=== PATIENT | female | born 1960 | race Caucasian/White ===

== ENCOUNTER → 2017-01-04 | Outpatient (CLI) | payer MEDICAID ==
--- NOTE | 2017-01-05 14:37 | MR ---
EXAM DATE: 01/04/17 PATIENT'S AGE: 56 Patient: ROSITA BERNABE Facility: [place], [place] Site . Site : [id number] Study: MRI Knee Left [id number]/28/2017 7:40:03 PM Ordering Physician: Obey Adame Final Report: HISTORY: Left knee pain. Remote left knee surgery. Technique: MRI left knee without contrast. Comparison: None. Findings: Medial compartment: Medial meniscus: Complex tearing of the medial meniscus. Meniscus is diffusely attenuated. Articular cartilage: Grade 3-4 cartilage loss in the weightbearing portion of the medial femoral condyle and the medial tibial plateau with mild subchondral marrow edema. Lateral compartment: Lateral meniscus: Intact. Articular cartilage: Grade 2 cartilage loss in weightbearing portion the medial femoral condyle. No focal medial tibial plateau cartilage defects. Patellofemoral compartment: No focal cartilage defects. Ligaments: ACL: Complete tear, likely remote. PCL: Intact. MCL: Intact. Lateral ligamentous complex: Intact. Extensor mechanism: Distal quadriceps and patellar tendons are intact. Medial and lateral patellar strains are intact. Joint space: Small joint effusion. Mild synovitis. Several ossified joint bodies , predominantly in the posterior aspect of the joint. Cluster of joint bodies posterior to the PCL measures 1 x 0.9 x 1.3 cm in aggregate. Largest body measures up to 7 mm in size. Bones and soft tissues: Tricompartmental osteophytes. No fracture. No marrow replacing process. No popliteal cyst. Impression: 1. 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 2. Diffusely attenuated medial meniscus likely reflects a combination of complex tearing and prior partial meniscectomy. 3. Complete ACL tear, likely remote. 4. Small joint effusion. Multiple joint bodies. Dictated by Eddie Vick MD @ Jan 05 2017 9:27AM (Electronic Signature) Report Signed by Proxy and Original Signed Document filed in the Medical Record. [facility]
== END ==
LOC: MW.MRI 17:23
PROVIDERS: ATTEND Student in an Organized Health Care Education/Training Program
DX: M25.562 Pain in left knee (principal); S83.242A Other tear of medial meniscus, current injury, left knee, initial encounter; S83.512A Sprain of anterior cruciate ligament of left knee, initial encounter; X58.XXXA Exposure to other specified factors, initial encounter; M25.462 Effusion, left knee
CPT/HCPCS: 73721-26-LT; 73721-LT